=== PATIENT | male | born 1950 | race Caucasian/White ===

== ENCOUNTER 2022-05-26 06:35 | Outpatient (CLI) | payer OTHER | END 2022-05-26 19:08 | disposition home or self-care (01) | LOC: SNM 06:35 | PROVIDERS: ATTEND Urology Pediatric Urology | DX: C61 Malignant neoplasm of prostate (principal); M41.85 Other forms of scoliosis, thoracolumbar region | CPT/HCPCS: 78306; A9503 ==

== ENCOUNTER 2022-10-11 11:28 | Outpatient (CLI) | payer OTHER ==
[2022-10-11] MEDS ORDERED: CYSTOGRAFIN 300 ML INFUS..BTL UR ONE (11:56)
== END 2022-10-11 18:54 | disposition home or self-care (01) ==
LOC: SNM 11:28
PROVIDERS: ATTEND Urology Pediatric Urology
DX: C61 Malignant neoplasm of prostate (principal)
CPT/HCPCS: 74430; 51600; Q9958

== ENCOUNTER 2022-10-20 13:46 | Outpatient (CLI) | payer OTHER ==
[2022-10-20] MEDS ORDERED: CYSTOGRAFIN 300 ML INFUS..BTL UR ONE (14:29)
== END 2022-10-20 20:51 | disposition home or self-care (01) ==
LOC: SRD 13:46
PROVIDERS: ATTEND Urology Pediatric Urology
DX: C61 Malignant neoplasm of prostate (principal)
CPT/HCPCS: 74430; 51600; Q9958

== ENCOUNTER 2022-11-03 14:08 | Outpatient (CLI) | payer OTHER ==
[2022-11-03] MEDS ORDERED: CYSTOGRAFIN 300 ML INFUS..BTL UR ONE (14:34)
== END 2022-11-03 15:30 | disposition home or self-care (01) ==
LOC: SRD 14:08
PROVIDERS: ATTEND Urology Pediatric Urology
DX: C61 Malignant neoplasm of prostate (principal)
CPT/HCPCS: 74430; 51600; Q9958

== ENCOUNTER 2022-11-17 13:54 | Outpatient (CLI) | payer OTHER ==
[2022-11-17] MEDS ORDERED: CYSTOGRAFIN 300 ML INFUS..BTL UR ONE (14:03)
== END 2022-11-17 18:13 | disposition home or self-care (01) ==
LOC: SRD 13:54
PROVIDERS: ATTEND Urology Pediatric Urology
DX: C61 Malignant neoplasm of prostate (principal)
CPT/HCPCS: 74430; 51600; Q9958